=== PATIENT | female | born 1990 | race Caucasian/White ===

== ENCOUNTER 2016-05-17 17:08 | Emergency (ER) | payer BC ==
[2016-05-17 17:26] VITALS: BP 118/74
--- NOTE | 2016-05-17 18:23 | ED Physician Documentation ---
Ear Complaints - HISTORIAN Historian: patient - HPI Stated Complaint: ear pain Chief Complaint: Ear Complaints Timing: worse Further Comments: yes (25 year old female patient presents with right ear pain x2 days. Has not taken any OTC medications [employer], no PCP.) - PAST HX Past History: other (depression) Allergies/Adverse Reactions: Allergies Allergy/AdvReac Type Severity Reaction Status Date / Time No Known Allergies Allergy Verified 05/29/15 15:22 Home Medications: Ambulatory Orders Medication Instructions Recorded Albuterol Sulfate [Proair HFA] 05/24/15 - SOCIAL HX Smoking History: cigarettes - FAMILY HX Family History: No - VITAL SIGNS Vital Signs: Vital Signs Temp Pulse Resp BP Pulse Ox 97.4 F L 82 18 118/74 99 05/17/16 17:18 05/17/16 17:18 05/17/16 17:18 05/17/16 17:18 05/17/16 17:18 - REVIEWED ASSESSMENTS Nursing Assessment Reviewed: Yes Vitals Reviewed: Yes Progress - Progress Progress: Explained ear pain was likely due to dental pain, will treat with toradol IM. Reviewed discharge instructions with patient. ED Results Lab/Radiology - Orders Orders: ED Orders Category Date Time Status Ketorolac Tromethamine [Toradol] Med 05/17/16 18:17 Once 60 mg IM NOW ONE Ear Complaint Physical Exam - EXAM General Appearance: no acute distress, alert Ear: auricle nml, freight tallier.canal nml, TM's nml Mouth/Throat: lips nml, gums nml, pharynx nml, dental caries (dental caries right upper molars. ) Head/Neck: atraumatic, neck nml inspection Resp/CVS: chest non-tender, breath sounds nml, heart sounds nml Abdomen: non-tender, no organomegaly Skin: nml color, no skin rash Neuro/Psych: oriented x3, mood/affect nml Discharge Clincal Impression: Pain, dental Referrals: Primary Doctor,No [Primary Care Provider] - 2 Days Additional Instructions: Ibuprofen 800mg (4 tabs) three times a day - 8 hours apart for the next 5 days. Tylenol between ibuprofen as needed for pain. See the dentist as soon as possible Home Medications: Ambulatory Orders Albuterol Sulfate [Proair HFA] 05/24/15 Condition: Stable Disposition: 01 HOME, SELF-CARE Decision to Admit: NO Decision Time: 18:18
[2016-05-17] MEDS: KETOROLAC TROMETHAMINE 60 MG/2 ML VIAL IM ONE (20:05)
== END 2016-05-17 18:30 | disposition home or self-care (01) ==
LOC: ED 17:08
DX: K02.9 Dental caries, unspecified (principal)
CPT/HCPCS: 99283

== ENCOUNTER 2016-11-21 20:54 | Emergency (ER) | payer SELFPAY ==
[2016-11-21 21:11] VITALS: BP 128/71
--- NOTE | 2016-11-21 21:13 | ED Physician Documentation ---
Sore Throat/Dental Pain - HPI Stated Complaint: c/o right side tooth pain Chief Complaint: Dental Pain Onset: days ago (has been present for several months, worse over the dlat 2 day) Associated Symptoms: denies: fever, chills Worsened By: other (pressure, no change with tyleno ibuprofen) Further Comments: yes (Pressure seems to help) - ROS CONST: no problems LNMP: 11/10/16 - PAST HX Past History: other (asthma) Other History: none Immunizations: referred to PCP Allergies/Adverse Reactions: Allergies Allergy/AdvReac Type Severity Reaction Status Date / Time No Known Allergies Allergy Verified 05/29/15 15:22 Home Medications: Ambulatory Orders Medication Instructions Recorded Albuterol Sulfate [Proair HFA] 05/24/15 Clindamycin HCl [Cleocin HCl] 300 mg PO QID #40 capsule 11/21/16 traMADol HCL [Ultram] 50 mg PO Q6H PRN #15 tablet 11/21/16 - SOCIAL HX Smoking History: less than 1 pack/day (10 per day) Alcohol Use: none Drug Use: none - FAMILY HX Family History: No - VITAL SIGNS Vital Signs: Vital Signs Temp Pulse Resp BP Pulse Ox 98.2 F 76 24 128/71 97 11/21/16 21:05 11/21/16 21:05 11/21/16 21:05 11/21/16 21:05 11/21/16 21:05 - REVIEWED ASSESSMENTS Nursing Assessment Reviewed: Yes Vitals Reviewed: Yes Dental Pain Physical Exam - EXAM General Appearance: alert Head/Neck: head nml inspection Eyes: eyes nml inspection Mouth/Throat: lips nml, gums nml, pharynx nml, voice nml, no drooling, membranes nml, dental tenderness (mild right lower molar area), gum swelling around teeth (mild), widespread dental decay, other (tenderness over the TMJ area) Respiratory: no resp. distress CVS: reg. rate & rhythm, heart sounds nml Abdomen: soft, no organomegaly Skin: warm/dry, normal color Neuro/Psych: No: weakness, numbness Discharge Clincal Impression: Dental caries TMJ arthralgia Qualifiers: Laterality: right Qualified Code(s): M26.621 - Arthralgia of right temporomandibular joint Referrals: Primary Doctor,No [Primary Care Provider] - 2 Days Additional Instructions: Warm compress to that area, try to not chew on the right side, eat soft foods, get an appointment to see a dentist. Take some Ibubrofen 800mg (4 tablets) with food every 8 hours until pain improved, may supplement with tramdol. Condition: Stable Disposition: 01 HOME, SELF-CARE Decision to Admit: NO Date of Decison to Admit: 11/21/16 Decision Time: 21:24
[2016-11-21] MEDS ORDERED: CLINDAMYCIN HCL 150 MG CAPSULE PO ONE (21:31)
[2016-11-21] MEDS ORDERED: KETOROLAC TROMETHAMINE 60 MG/2 ML VIAL IM ONE (21:31)
== END 2016-11-21 21:37 | disposition home or self-care (01) ==
LOC: ED 20:54
DX: K02.9 Dental caries, unspecified (principal); M26.621 Arthralgia of right temporomandibular joint
CPT/HCPCS: A9270; J1885; 96372; 99283